=== PATIENT | female | born 1970 | race Caucasian/White ===

== ENCOUNTER 2017-04-18 06:00 | Day surgery (SDC) | payer OTHER, SELFPAY ==
[2017-04-18 09:58] VITALS: BP 123/82; PULSE 82; RESP 18; TEMP 36.4; O2SAT 98; BMI 26.0
== END 2017-04-18 23:59 | disposition home or self-care (01) ==
LOC: EN 08-29 11:14
PROVIDERS: Family Provider Family Medicine; PCP Family Medicine; Visit Provider Internal Medicine Gastroenterology
DX: R13.10 Dysphagia, unspecified (principal); R93.3 Abnormal findings on diagnostic imaging of other parts of digestive tract
CPT/HCPCS: 91299

== ENCOUNTER 2024-02-26 07:59 | Day surgery (SDC) | payer SELFPAY ==
[2024-02-26] VITALS (8 sets, daily range): BP systolic 125–152; BP diastolic 82–92; PULSE 70–94; RESP 16–18; TEMP 36.1–36.8; O2SAT 92–98; BMI 29.1
--- NOTE | 2024-02-26 08:36 | PRE.ANES_ITS ---
ASA Classification* ASA Classification ASA Classification: 2 Assessment & Plan Anesthesia* Anesthesia Assessment Anesthesia Assessment: Discussed sedation and/or anesthesia options, risks, benefits, and alternatives with patient/parents/legal guardian/POA. Questions invited. The patient/parents/legal guardian/POA seems to understand and agrees to proceed with anesthesia plan. Reviewed the physical assessment, medical history, allergy history and patient home medications list prior to surgery/procedure/anesthetic and documented any changes. Performed airway and anesthesia risk assessments. 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 When Was Last Pacemaker Check QUESTION #4 FULL TEXT: You/Your Family Experience fever (hyperthermia) with Anesthesia Last Oral Intake Last Oral intake: Last Oral Intake NPO since Meds taken in AM with sips of water? Meds patient instructed to take am of surgery PONV PONV - data warehouse developer: PONV - data warehouse developer Female Yes 02/19/24 15:25 HX of Motion Sickness No 02/19/24 15:25 HX of N/V After Surgery No 02/19/24 15:25 Non-Smoker Yes 02/19/24 15:25 Duration of Surgery greater Yes 02/19/24 15:25 than 60 minutes Number of Risk Factors 3 02/19/24 15:25 PONV Score Moderate Risk 02/19/24 15:25 Height & Weight Height & Weight: Anesthesia: Height & Weight Height 5 ft 1 in 01/13/24 09:04 Respiratory Assessment Respiratory Assessment - data warehouse developer: Respiratory Tract Infection Hx - data warehouse developer Hx Respiratory Tract Infection No 02/19/24 15:25 STOP Sleep Apnea STOP Sleep Apnea - data warehouse developer: STOP Sleep Apnea - data warehouse developer Hx Hypertension No 02/19/24 15:25 Hx Sleep Apnea No 02/19/24 15:25 CPAP BIPAP Do you snore loudly (louder No 02/19/24 15:25 than talking or can be heard Do you often feel tired/ No 02/19/24 15:25 fatigued/ sleepy during daytime? Has anyone observed you stop No 02/19/24 15:25 breathing during sleep? STOP Results Negative 02/19/24 15:25 QUESTION #5 FULL TEXT : Do you snore loudly (louder than talking or can be heard through closed doors)? 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 Specify any problems Hx of Preganancy in last 3 No 02/19/24 15:25 Months Nurse Filling Out Transfusion VCHRISTIN 02/19/24 15:25 & Questions: Date: 02/19/24 02/19/24 15:25 Time: 15:26 02/19/24 15:25 Patient unable to answer at this time (ie. confused, unrespo /Reproduction History /Reproductive History - data warehouse developer: /Reproductive Hx- data warehouse developer Hx Now Gestational Age (in weeks): EDC: Hx Hx Para Hx Section SAB Active Medications Active Medications: Current Medications Generic Name Dose Route Start Last Admin Trade Name Freq PRN Reason Stop Dose Admin Cefazolin Sodium 2 gm/ N/A 20 mls @ 400 mls/hr 02/26/24 10:40 IV 02/26/24 10:42 PREOP ONE Sodium Chloride 1,000 mls @ 15 mls/hr 02/26/24 08:35 IV 03/02/24 21:54 .Q48H [facility] Protocol PFSH Medical History Wears glasses Cancer History of steroid therapy Thyroid disease Arthritis DVT (deep venous thrombosis) Migraine headache History of hiatal hernia Non-smoker Asthma History of Holter monitoring History of echocardiogram History of irregular heartbeat Superior labrum bvglefwr-og-ydefduzoj (SLAP) tear of right shoulder Right rotator cuff tear Right shoulder pain Home Medications ?Medication ?Instructions ?Recorded ?Last Taken ?Type levothyroxine 88 mcg tablet 88 mcg PO DAILY 02/19/24 Unknown History magnesium 250 mg tablet 250 mg PO DAILY 02/19/24 Unknown History Allergy/AdvReac Type Severity Reaction Status Date / Time morphine Allergy Severe Nausea/Vom/ Verified 02/19/24 15:11 Diarrhea Family History Mother CVA (cerebral vascular accident) Surgical History Hx of appendectomy History of laparoscopic cholecystectomy Hx of colonoscopy History of gastric surgery Hx of tonsillectomy History of thyroid surgery Hx of section History of carpal tunnel surgery History of ankle surgery History of back surgery History of hernia surgery Social History household members: spouse and children Smoking Status: Never smoker alcohol intake: never Review of Systems (Anesthesia) ROS Narrative System reviewed and no additional complaints, except as documented.
[2024-02-26] MEDS: 0.9% Normal Saline (1000mL) 1,000 ML 15 ML IV (09:07)
--- NOTE | 2024-02-26 09:41 | HP.PCM_ITS ---
HPI - General HPI Narrative LUCIANO MARTIN, is a 53 F who presents for right shoulder arthroscopy, subacromial decompression, rotator cuff repair, possible biceps tenodesis. No changes to history and physical exam. Risks alternatives benefits discussed as well as postoperative instruction and narcotic counseling. Patient understands right shoulder marked no further questions or concerns okay to proceed. MR#: [id number] Acct: [id number] Name: LUCIANO MARTIN Rep #: [id number] : 1970 Provider: Dr. Nirav Hernandez MD Age/Sex: 53/F Location: [facility] Status: Signed Intake Vital Signs 01/12/2409:04 Height 5 ft 1 in Weight: 152 lb 4 oz BMI 28.8 Intake Visit Reasons: RIGHT SHOULDER/ANKLE Accompanied by: Son Is patient in pain?: Yes (Shoulder ) Pain scale (1-10): 4 Allergies No Known Allergies Allergy (Verified 01/13/24 09:05) Medications ?Medication ?Instructions ?Recorded ?Confirmed ?Type psyllium seed (sugar) oral powder 1 tbsp PO ONCE 01/13/24 01/13/24 History PFSH Medical History (Updated 01/13/24 @ 09:40 by Nirav Hernandez MD) Superior labrum lcfetuoc-ui-qbrewynxg (SLAP) tear of right shoulder Right rotator cuff tear Right shoulder pain Surgical History (Updated 01/13/24 @ 09:09 by Johanna Crews MA) History of gastric surgery Hx of tonsillectomy History of thyroid surgery Hx of section History of carpal tunnel surgery History of ankle surgery History of back surgery History of hernia surgery Family History (Updated 01/13/24 @ 09:10 by Johanna Crews MA) Mother CVA (cerebral vascular accident) Social History (Updated 01/13/24 @ 09:10 by Johanna Crews MA) household members: spouse and children Smoking Status: Never smoker alcohol intake: never HPI RIGHT SHOULDER/ANKLE Details: This documentation accurately reflects the service provided and the decisions made by me, Dr. Nirav Hernandez MD 01/13/24 0903. Part of today?s visit was documented by [ ], acting as scribe. LUCIANO MARTIN is a 53 year old F here today for R shoulder pain, staying the same, anterior and posterior shoulder pain. since September. FOOSH on the R upper extremity, had to avoid a vehicle on the [place]. was trying STIM therapy but making it worse. has to do up 16 loads of laundry a day likes to do sewing and quilting. RHD. medications - no and no injections. had cortisone in the past with poor reaction. had thyroid surgery a week ago. daughter getting in the spring. interested in surgery. Ortho Exam General General: Yes no acute distress Neurologic: Yes alert and Yes oriented x3 Psychologic: Yes reasonable and appropriate Right Shoulder Skin/Wound: Yes CDI, No ecchymosis, No erythema and No swelling Testing: Positive Hawkin's, Neer's, Speed's, TTP Biceps, AROM-Forward Elevation 0-180, AROM-External Rotation at side 0-60, empty can, Sherman and belly press normal; Negative TTP AC Joint, Drop Arm, Load and Shift, jerk, cross arm or scapular winging SHOULDER: normal motor and sens to ax nerve, and MRU and AIN/PIN strength fe 4/5, er 4+. Supplemental Info X-rays reviewed from disc of the right shoulder 12/23/2023 3 views no arthritis no acute MRI reviewed as well I independently reviewed the imaging. Concur with radiologist report. MRI right shoulder without contrast 12/05/2023 Conclusion 1. Superior anterior and posterior labral tears. 2 middle glenohumeral ligament tear 3 interstitial tear of the supraspinatus and subscapularis tendons Coding Level of Care Code Off vis,new,level 3 Diagnoses Right shoulder pain M25.511 Right rotator cuff tear M75.101 Superior labrum sbfvyyhp-of-dxexeyeki (SLAP) tear of right shoulder S43.431A Assessment and Plan Assessment and Plan (1) Right shoulder pain: Status: Acute Plan: 53-year-old female with right shoulder pain after an injury. The patient does have interstitial tearing of the supraspinatus tendon as well as tear at the superior labrum. No osteoarthritis. Patient counseled on the diagnosis prognosis different treatment options available including but not limited to rest ice anti-inflammatories active modifications doing nothing cortisone injections physical therapy and surgery. In my opinion the patient does not have instability despite the labrum tears no sensations of instability in the clinic or subjectively and typically in a patient over 50 with labrum tears this becomes more so stiff than anything. I think a lot of the pain is likely coming from bursitis tendinitis and the interstitial tearing. Patient is interested in surgery. In my hands this would be in the form of right shoulder arthroscopy, subacromial decompression, rotator cuff repair, possible biceps tenodesis. Explained the recovery associated with this 2 weeks in a sling 3 to 6 months of postoperative recovery including physical therapy the patient understands wishes to proceed signed the consent form for surgery as well as possible need for blood products. I also explained that there will be a delay to surgery given the national IV fluid shortage. The patient understands no further questions or concerns. Pros and cons risks and benefits were discussed with the patient including but not limited to infection, pain, stiffness, bleeding, damage to surrounding structures, neurovascular injury, recurrence or retear, failure or wear of hardware or fixation, instability, fracture, deep vein thrombosis and pulmonary embolism, anesthetic risks, , patient dissatisfaction, need for further surgery and other risks. Patient understood and wished to proceed with surgery, and signed the informed consent documentation. (2) Right rotator cuff tear: Status: Acute (3) Superior labrum gfvvhgmx-fj-ppntpvovs (SLAP) tear of right shoulder: Status: Acute [facility] Medical History Wears glasses Cancer History of steroid therapy Thyroid disease Arthritis DVT (deep venous thrombosis) Migraine headache History of hiatal hernia Non-smoker Asthma History of Holter monitoring History of echocardiogram History of irregular heartbeat Superior labrum doywagvf-gn-umhggupya (SLAP) tear of right shoulder Right rotator cuff tear Right shoulder pain Home Medications ?Medication ?Instructions ?Recorded ?Last Taken ?Type levothyroxine 88 mcg tablet 88 mcg PO DAILY 02/19/24 02/26/24 History magnesium 250 mg tablet 250 mg PO DAILY 02/19/24 02/23/24 History Allergy/AdvReac Type Severity Reaction Status Date / Time morphine Allergy Severe Nausea/Vom/ Verified 02/26/24 08:51 Diarrhea Family History Mother CVA (cerebral vascular accident) Surgical History Hx of appendectomy History of laparoscopic cholecystectomy Hx of colonoscopy History of gastric surgery Hx of tonsillectomy History of thyroid surgery Hx of section History of carpal tunnel surgery History of ankle surgery History of back surgery History of hernia surgery Social History household members: spouse and children Smoking Status: Never smoker alcohol intake: never Vital Signs Vital Signs Vital Signs: 02/26/24 08:52 02/26/24 08:52 Temperature 97.9 F Temperature Source Temporal Pulse Rate 79 Respiratory Rate 18 Respiratory Pattern Normal Blood Pressure 144/87 H Blood Pressure Mean 106 Blood Pressure Source Monitor Blood Pressure Position Semi-Fowlers Blood Pressure Location Left Arm Pulse Ox 98 Oxygen Delivery Method Room Air Weight Weight: 154 lb 5.177 oz Body Mass Index (BMI) 29.1
[2024-02-26] MEDS: Cefazolin 2 GM in Syringe IV (10:07)
[2024-02-26] MEDS: Epinephrine (1 mg/ml) 1 MG/ML VIAL (10:27)
--- NOTE | 2024-02-26 11:36 | PCM.OPRPT ---
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 Review Specialist: rj Dye Tasks completed by assistant offset press operator: Retracting Additional temporary administrative assistant?: No Type of Anesthesia: Block,Regional and General RN Documented Start/Stop Times: Operation Date: 02/26/24 10:40 Case Time Into Pre-Op 02/26/24 08:31 Anesthesia Start 02/26/24 10:07 Into Room 02/26/24 10:07 Out of Pre-Op 02/26/24 10:07 Procedure Start 02/26/24 10:27 Procedure End 02/26/24 11:30 Procedure Start Time: 10:27 Procedure Stop Time: 11:30 Select all DRAINS/GRAFTS/IMPLANTS that apply: Implanted device Implanted device details: arthre fibertak anchors Estimated Blood Loss: 50 Specimen collected: No Description of surgery: Patient brought to the operating room theater. Placed supine on the table. General anesthesia induced. 2 g IV Ancef administered prior to the start of the case. Patient transferred right side up lateral decubitus beanbag positioner axillary roll used. All bony prominences padded. SCDs on the legs. Upper extremity prepped and draped in the usual sterile fashion allowing over 3 minutes drying time prior to draping. Upper extremity in the traction set up 10 pounds of inline traction with the arm in 40 degrees of abduction. Preoperative timeout performed to confirm the site patient and the surgery. Began by inserting the arthroscope into the intra-articular portion of the shoulder through a standard posterior arthroscopy portal. Due to diagnostic arthroscopy. Cartilage on the glenoid and humeral head was normal. No obvious tearing of the undersurface of the rotator cuff tendons. Subscapularis - Normal. There is some minor biceps fraying and type II SLAP tearing instability of the biceps root. I made an inside out spinal needle localized portal through the rotator interval anteriorly. I performed an intra-articular biceps tenotomy for later biceps tenodesis. Arthroscope was then placed in the subacromial space. Made a lateral portal. I did a complete bursectomy for moderate amount of bursitis. I did a subacromial decompression for about 4 mm down to flat margins minor downsloping of the acromion. I probed the superior aspect of the rotator cuff supraspinatus there was some areas of appearing to be interstitial tearing and fraying. As such I decided to perform a trans tendon [id number] from anterior to posterior repair. I used Arthrex fiber tack knotless all suture anchors 1 anteriorly and 1 posteriorly to repair the tear at the mid aspect of the footprint. I used the repair sutures and shuttled these through the repair mechanism anterior to posterior to create 2 suture limbs. I cut the suture short. I took intraoperative arthroscopy pictures saved those onto the system. Next I turned my attention to the superior medial upper end of the humerus. Made a small 1 inch incision centered over the long head of the biceps tendon just distal to the pectoralis major tendon. Carried the dissection down through skin and subcutaneous tissue to meticulous hemostasis. Incised the fascia in line with skin incision. Identified the long head of the biceps tendon deliver this through the skin incision. I shorten the biceps appropriately. I used the Arthrex biceps locking loop repair suture and then passed the suture from superficial to deep. I then drilled a unicortical hole at the mid aspect of the humerus. I irrigated any bone dust. I passed the suture through the biceps tension tight button, and passed the button into the intramedullary aspect of the canal flipped the button and delivered the biceps down to the repair site suture cut short. Repair stable and very solid. Wounds thoroughly irrigated. Subcutaneous tissue closed with 2-0 Vicryl sutures and 3-0 Monocryl suture. Skin cleaned with wet and dry dressing followed application of Steri-Strips Adaptic 4 x 4 gauze ABD dressing cloth tape and an abduction pillow sling for the upper extremity. Patient woken up from the general anesthetic transferred off the operating table taken to postanesthetic care unit in stable condition. All sponge needle instrument counts were correct no complications. Plan for the patient discharged home according to day surgery criteria follow-up in the office in 2 days time. Pendulums gently 4x/day. CPT 48464, 41021, 14861 Surgical Findings: interstitial tearing SS, slap tear type 2. Complications Complications: No Admit VTE Documentation VTE Present on Admission: No VTE Mechan Device Prophylaxis: SCD's VTE Pharm Prophylaxis ordered?: No Reason prophylaxis not ordered: Treatment Not Indicated
--- NOTE | 2024-02-26 11:49 | EX.PCM.DISCH ---
Discharge Instructions Diet Discharge Diet: No restrictions Activity Ice area for (Minutes): 10 Lifting Restrictions: pendulums 4x/day, ok for hand wrist elbow rom, no lifting over 1 pound Dressing / Incision Call your doctor if your incision/area has: Continuous Slow Oozing, Sudden Increased Bleeding, Increased Pain/ Swelling, Increased Redness, Foul Smelling Discharge and Swelling at the incision site Call your doctor if you observe: Fever of 101 or Higher, Coldness, Increased Pain and Numbness or Tingling Remove Dressing in: leave in place till F/U Cleanse incision/area with: Do not get Incision Wet Follow Up Care Please Follow Up With: Nirav Hernandez MD When: 2 days Test Results: Test results from this visit will be discussed in further detail at your follow-up appointment, if applicable. Discharge Plan Admission Attending Provider: Nirav Hernandez Primary Care Provider: Negrito Dubose Instructions Print Language: Barbadian Discharge Orders/Prescriptions Prescriptions: New tramadol 50 mg tablet 50 mg PO Q4H PRN (Reason: pain) 5 Days Qty: 30 0RF No Action levothyroxine 88 mcg tablet 88 mcg PO DAILY Patient Comments: WILL BE INCREASING DOSAGE D/T LAB LEVEL. PT WILL ADVISE DAY OF OR magnesium 250 mg tablet 250 mg PO DAILY Referrals / Follow Up: Niarv Hernandez MD [Med Staff - Active Staff] - Negrito Dubose MD [Primary Care Provider] - Disposition Disposition (needs filled in before D/C Order can be placed): Home, Self Care
--- NOTE | 2024-02-26 14:13 | PCM.POST.ANE ---
Anesthesia: Postop Eval I Current Vital Signs Temperature: 97 F Pulse Rate: 93 Blood Pressure: 152/92 Respiratory Rate: 16 Pulse Ox: 98 Oxygen Delivery Method: Room Air Assessment Airway patent: Yes Spontaneous unlabored respirations: Yes Mental status: Awake and Calm nausea: No Vomiting: No Anesthesia Complication: No Fluid Hydration Crystalloid volume administer (ml): 1,000 Total IV fluid infused: 1,000 Progress Note Anesthesia document: Postop Eval 1 completed: Yes
--- NOTE | 2024-02-26 14:18 | POSTOPAN2_ITS ---
Anesthesia Postop Eval I Sum Postop Eval Completion status Anesthesia document: Postop Eval 1 completed: Yes Anesthesia Postop Eval I Summary Anesthesia Postop Eval I Summary: Anesthesia Postop Eval I: Assessment Summary Airway patent Yes 02/26/24 14:14 RN DOCUMENTATION [email or web address] Spontaneous unlabored Yes 02/26/24 14:14 RN DOCUMENTATION [email or web address].[email or web address] respirations Mental status Awake,Calm 02/26/24 14:14 RN DOCUMENTATION [email or web address].[email or web address] nausea No 02/26/24 14:14 RN DOCUMENTATION [email or web address].[email or web address] Vomiting No 02/26/24 14:14 RN DOCUMENTATION [email or web address].[email or web address] Anesthesia Postop Eval I: Fluid Summary Crystalloid volume administer 1,000 02/26/24 14:14 RN DOCUMENTATION [email or web address].[email or web address] (ml) Colloids volume administered ( ml) Blood Product volume administered (ml) Total IV fluid infused 1,000 02/26/24 14:14 RN DOCUMENTATION [email or web address].[email or web address] Anesthesia Postop Eval I: Summary Notes Anesthesia Complication No 02/26/24 14:14 RN DOCUMENTATION [email or web address].[email or web address] Anesthesia Complication Comment: Post-operative progress note Anesthesia: Postop Eval II Evaluation Mental status: Awake Pain Level: 0 nausea: No Vomiting: No
--- NOTE | 2024-02-26 14:18 | PCM.POSTANE2 ---
Anesthesia Postop Eval I Sum Postop Eval Completion status Anesthesia document: Postop Eval 1 completed: Yes Anesthesia Postop Eval I Summary Anesthesia Postop Eval I Summary: Anesthesia Postop Eval I: Assessment Summary Airway patent Yes 02/26/24 14:14 [email or web address] Spontaneous unlabored Yes 02/26/24 14:14 MACHINE [email or web address] respirations Mental status Awake,Calm 02/26/24 14:14 [email or web address] nausea No 02/26/24 14:14 MACHINE [email or web address] Vomiting No 02/26/24 14:14 [email or web address] Anesthesia Postop Eval I: Fluid Summary Crystalloid volume administer 1,000 02/26/24 14:14 [email or web address] (ml) Colloids volume administered ( ml) Blood Product volume administered (ml) Total IV fluid infused 1,000 02/26/24 14:14 [email or web address] Anesthesia Postop Eval I: Summary Notes Anesthesia Complication No 02/26/24 14:14 [email or web address] [email or web address] Anesthesia Complication Comment: Post-operative progress note Anesthesia: Postop Eval II Evaluation Mental status: Awake Pain Level: 0 nausea: No Vomiting: No
== END 2024-02-26 14:07 | disposition home or self-care (01) ==
LOC: SDC 08:08 → AC 08:11
PROVIDERS: PCP Family Medicine; Referring Provider Orthopaedic Surgery Sports Medicine; Visit Provider Orthopaedic Surgery Sports Medicine
PROC: (CPT 29805; principal; 2024-02-26 10:20)
DX: S43.431A Superior glenoid labrum lesion of right shoulder, initial encounter (principal); M75.101 Unspecified rotator cuff tear or rupture of right shoulder, not specified as traumatic; Z86.718 Personal history of other venous thrombosis and embolism; E07.9 Disorder of thyroid, unspecified; Z87.19 Personal history of other diseases of the digestive system; Z90.49 Acquired absence of other specified parts of digestive tract
CPT/HCPCS: 29826; 29827; 23430; 01630; 64450; C1713; J2405

== ENCOUNTER 2024-05-15 08:07 | Day surgery (SDC) | payer SELFPAY ==
[2024-05-15] VITALS (11 sets, daily range): BP systolic 121–154; BP diastolic 70–94; PULSE 78–97; RESP 16; TEMP 36.4–36.8; O2SAT 94–98; BMI 29.8
[2024-05-15] MEDS: 0.9% Normal Saline (1000mL) 1,000 ML 15 ML IV (08:55)
--- NOTE | 2024-05-15 09:34 | PRE.ANES_ITS ---
ASA Classification* ASA Classification ASA Classification: 2 Assessment & Plan Anesthesia* Anesthesia Assessment Anesthesia Assessment: Discussed sedation and/or anesthesia options, risks, benefits, and alternatives with patient/parents/legal guardian/POA. Questions invited. The patient/parents/legal guardian/POA seems to understand and agrees to proceed with anesthesia plan. Reviewed the physical assessment, medical history, allergy history and patient home medications list prior to surgery/procedure/anesthetic and documented any changes. Performed airway and anesthesia risk assessments. Anesthesia Type Anesthesia Type: General and Block (Patient is consented for pain block.) History Source History Obtained from:: Patient and Chart Anesthesia Focused Assessment* Temperature: 98.2 F Pulse Rate: 78 Blood Pressure: 148/94 Respiratory Rate: 16 Pulse Ox: 98 Oxygen Delivery Method: Room Air Airway Assessment Mouth opens: >3 cm Mallampati Score: I Teeth Condition: Intact Neck Range of motion (ROM): Full ROM Focused Labs Anesthesia Preop lab: CBC CHEMISTRY COAG Pre-Assessment Diagnosis/Proposed Procedure Planned Operative Procedure(s): REVISIONAL RIGHT LATERAL ANKLE STABILIZATION Anesthesia History 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 When Was Last Pacemaker Check QUESTION #4 FULL TEXT: You/Your Family Experience fever (hyperthermia) with Anesthesia Patient had episode of apnea after her gastric stretching procedure. Last Oral Intake Last Oral intake: Last Oral Intake NPO since 18:30 05/15/24 08:52 Meds taken in AM with sips of Yes 05/15/24 08:52 water? 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 Female Yes 05/01/24 11:04 HX of Motion Sickness Yes 05/01/24 11:04 HX of N/V After Surgery No 05/01/24 11:04 Non-Smoker Yes 05/01/24 11:04 Duration of Surgery greater Yes 05/01/24 11:04 than 60 minutes Number of Risk Factors 4 05/01/24 11:04 PONV Score Severe Risk 05/01/24 11:04 Height & Weight Height & Weight: Anesthesia: Height & Weight Height 5 ft 1 in 05/15/24 08:52 Weight: 71.6 kg 05/15/24 08:52 Body Mass Index (BMI) 29.8 05/15/24 08:52 Respiratory Assessment Respiratory Assessment - russian history professor: Respiratory Tract Infection Hx - russian history professor Hx Respiratory Tract Infection No 05/01/24 11:04 STOP Sleep Apnea STOP Sleep Apnea - russian history professor: STOP Sleep Apnea - russian history professor Hx Hypertension No 05/01/24 11:04 Hx Sleep Apnea No 05/01/24 11:04 CPAP BIPAP Do you snore loudly (louder No 05/01/24 11:04 than talking or can be heard Do you often feel tired/ No 05/01/24 11:04 fatigued/ sleepy during daytime? Has anyone observed you stop No 05/01/24 11:04 breathing during sleep? STOP Results Negative 05/01/24 11:04 QUESTION #5 FULL TEXT : Do you snore loudly (louder than talking or can be heard through closed doors)? 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 professor: Tobacco Use History - russian history professor Tobacco Use Smoking Status Never smoker 05/01/24 11:04 Hx Tobacco Use No 05/01/24 11:04 Years Smoking Packs Smoked per Day Smoking Cessation Date was within the last 15 years Hx Smoking Cessation Date Hx Smoking Cessation Counseling Hematologic Medial History Hematologic Hx - russian history professor: Hematologic Medical Hx - manager floral Hx of Blood Transfusion No 05/01/24 11:04 Hx of Transfusion in last 3 No 05/01/24 11:04 Months Date of Last Transfusion (if within last 3 months) Ever experience any problems No 05/01/24 11:04 with transfusion(s)? Specify any problems Hx of Preganancy in last 3 No 05/01/24 11:04 Months Nurse Filling Out Transfusion DSCHRIBER 05/01/24 11:04 & Questions: Date: 05/01/24 05/01/24 11:04 Time: 11:06 05/01/24 11:04 Patient unable to answer at this time (ie. confused, unrespo /Reproduction History /Reproductive History - russian history professor: /Reproductive Hx- russian history professor Hx Now No 05/01/24 11:04 Gestational Age (in weeks): EDC: Hx Hx Para Hx Section SAB No 05/01/24 11:04 Active Medications Active Medications: Current Medications Generic Name Dose Route Start Last Admin Trade Name Freq PRN Reason Stop Dose Admin Cefazolin Sodium 2 gm/ N/A 20 mls @ 400 mls/hr 05/15/24 10:30 IV 05/15/24 10:32 PREOP ONE Sodium Chloride 1,000 mls @ 15 mls/hr 05/15/24 08:45 05/15/24 08:55 IV 05/20/24 22:04 15 mls/hr .Q48H IVETH Administration Protocol PFSH Medical History History of stress test Wears glasses Cancer Thyroid disease Arthritis DVT (deep venous thrombosis) Migraine headache History of hiatal hernia Non-smoker Asthma History of irregular heartbeat Superior labrum hrmyttin-lj-fsgrtwpke (SLAP) tear of right shoulder Right rotator cuff tear Right shoulder pain Home Medications ?Medication ?Instructions ?Recorded ?Last Taken ?Type levothyroxine 88 mcg tablet 112 mcg PO DAILY 02/19/24 05/15/24 History magnesium 250 mg tablet 250 mg PO DAILY 02/19/2411/08 History BLOOD FLOW 7 1 tab PO DAILY 05/01/24 Unkn own History GREENLANDIC KISS 1 tab PO DAILY 05/01/24 Unkn own History Allergy/AdvReac Type Severity Reaction Status Date / Time morphine AdvReac Severe Nausea/Vom/ Verified 05/15/24 08:51 Diarrhea Family History Mother CVA (cerebral vascular accident) Surgical History Hx of shoulder surgery Hx of appendectomy History of laparoscopic cholecystectomy Hx of colonoscopy History of gastric surgery Hx of tonsillectomy History of thyroid surgery Hx of section History of carpal tunnel surgery History of ankle surgery History of back surgery History of hernia surgery Social History household members: spouse and children Smoking Status: Never smoker alcohol intake: never Review of Systems (Anesthesia) ROS Narrative System reviewed and no additional complaints, except as documented.
--- NOTE | 2024-05-15 10:30 | TISS_PTH ---
PATIENT: LUCIANO MARTIN LOC: [facility] – [place] U#:[id number] AGE/SX: 53/F ROOM: RE05/15/[address]: Dr. Jovon Mejia DPM : 1970 BED: DIS: 05/15/2024 SPEC #: [id number] RECD: 05/15/24 15:25 STATUS: SUNDAY JENNA #: [id number] DIMITRIOS: 05/15/24 10:[address]: Jovon Mejia DEPT: SURGICAL PATHOLOGY RECD BY: Melyssa De La Garza ENTERED: 05/18/24 08:43 SP TYPE: Tissue Bx MACK DR: Dr. Negrito Dubose MD Tissues: Ankle, NOS Procedures: Surgery Specimen Level IV HEADER OPERATION: Revisional right lateral ankle stabilization PRE-OP DIAGNOSIS: Right foot pain TISSUE SUBMITTED: Suture anchor right ankle MICROSCOPIC DIAGNOSIS Right ankle, suture anchor, debridement: * Fibroadipose tissue with suture material and foreign body inflammation. MICROSCOPIC DESCRIPTION Slides are reviewed. GROSS DESCRIPTION Received in fixative is one container labeled with the patient's name and designated Suture anchor right ankle. The specimen consists of two irregular shaped fragments of yellow-ramos fibrous / fibroadipose tissue. The fragments aggregate to 1.5 x 1.2 x 0.6cm. The larger of the two fragments is inked black and is bisected. Sectioning is unremarkable. The entire specimen is submitted in one cassette. Kelli 05/18/2024 TC: CPT:00198
[2024-05-15] MEDS: Cefazolin 2 GM in Syringe IV (11:52)
--- NOTE | 2024-05-15 11:55 | RAD_ITS ---
PROCEDURE: ANKLE 2 VIEWS REASON FOR EXAM: Intraoperative imaging. TECHNIQUE: Several views were obtained intraoperatively for reduction of the ankle. COMPARISON: None FINDINGS: Intraoperative fluoroscopic services. RAD/Ankle 2 Views IMPRESSION: Intraoperative fluoroscopic services. Reading Location: [id number]
--- NOTE | 2024-05-15 13:06 | PCM.OPRPT ---
Problems Associated Problem List Diagnoses (1) Instability of right ankle joint: Operative Report (Standard) Operative Information Date of Procedure: 05/15/24 Pre-Operative Diagnosis: 1) Chronic Right Lateral Ankle Stabilization Post-Operative Diagnosis: Same Surgery/Procedure Performed: Revisional right lateral ankle stabilization with brostrum belcher and overlying internal bracing visual merchandising director: Yes Procedure Manager: pj lezama Tasks completed by medical assistant instructor: Opening, Closing, Opening & closing, Removing tissue, Implanting device, Hemostasis: Tie, Hemostasis: Electrocautery, Trocar and Retracting Additional leasing assistant?: No Type of Anesthesia: General RN Documented Start/Stop Times: Operation Date: 05/15/24 10:30 Case Time Into Pre-Op 05/15/24 08:40 Anesthesia Start 05/15/24 11:37 Into Room 05/15/24 11:37 Procedure Start 05/15/24 11:58 Procedure Start Time: 11:50 Procedure Stop Time: 13:15 Select all DRAINS/GRAFTS/IMPLANTS that apply: Implanted device Implanted device details: 3x3.5mm anchors, 2x2.9mm anchors andra Special Medications: popliteal block performed pre op per anesthesia Estimated Blood Loss: minimal Specimen collected: Yes Description of specimen(s) removed: previous ankle repair anchor removal Description of surgery: Patient brought back to the operating room and placed comfortably with all osseous prominences offloaded. Well padded well thigh tourniquet applied to right thigh. Right lower extremity scrubbed, prepped and draped using adeptic technique. Right lower extremity elevated exsanguinated tourniquet inflated to 300 mmHg. Using fluoroscopic imaging the distal lateral malleolus was marked out. A curvilinear incision along the distal course of the anterior portion of the fibula was drawn curving into the sinus tarsi. This incision was made full-thickness through epidermis dermis into subcutaneous tissue with a #15 blade. Any bleeders identified cauterized. Blunt dissection was taken down the level of the fascia. There is noted to be diffuse scar tissue the lateral ankle with previous anchors and suture from previous surgical correction which appeared to be inferior to actual anatomic position of the ATFL ligament. This previous repair was noted to be unstable with stressing as documented on fluoroscopic imaging. Next, a full-thickness flap was created along the anterior fibula extending across the ankle joint to the lateral talar body and neck. This was made with hemostats extending from the ankle joint from superior to inferior. This flap was created with a 15 blade and slightly dissected off the anterior lip of the fibula to allow for space for Brostr?m repair. Additionally ATFL was noted to be in significant and not stable during this process. At this point a 3.5 mm suture fix anchor was applied with 2 strands of fiber tape, #2 anchored into it along the anterior lateral talar body/shoulder. These were passed and held off to the side out of the way of the the incisional site. 8-9 suture fix anchor was applied distally along the anterior aspect of the fibula and this was passed through with a #2 fiber tape from inferior to superior through the fibular full-thickness periosteal ATFL flap that was created previously into the distal end of the ATFL ligament from inferior to superior and then superior to inferior back through creating a process from repair with the inferior extensor retinaculum tacked down with a second to 9 anchor that was placed 1.5 cm superior to the initial anchor this was placed and tightened with the ankle held in a dorsiflexed and everted position maximally. At this time the 2 ends of the fiber tape were split the ankle was held in a neutral rectus position and these were stable since lies down with from the lateral talar body anchor into the fibula using two 3.5 mm suture fix anchors as tissue augmentation supplementation of that lateral ankle repair via internal brace. At this time all loose suture ends were cut this was a knotless repair. Fluoroscopic imaging was used to confirm adequate position laterally on AP imaging with lined up ankle mortise. This was noted. Upon varus and anterior drawer stressing there was no residual instability as documented fluoroscopic imaging. Tourniquet was let down, total tourniquet time was noted to be an hour and 12 minutes. Site was flushed with copious amounts normal sterile saline. Deep closure performed with simple interrupted 3-0 Vicryl. Subcutaneous closure performed with simple interrupted 3-0 Vicryl. Skin closure performed with 3-0 nylon horizontal mattress. Incisional site dressed with Betadine Adaptic 4 x 4's Kerlix and a well-padded AO splint with the foot and ankle held in a dorsiflexed everted position. Patient Toller procedure and anesthesia well apparent satisfactory condition. Patient transported PACU vital signs stable and vascular status intact all digits for further monitoring prior to discharge. No complications Findings restored stability to the lateral ankle ligaments as confirmed with fluoroscopic imaging where there is no talar tilting or positive anterior drawer sign upon stressing. Previous repair is noted to be unstable with initial fluoroscopic stressing that is documented. [place] was patent taken and passed to the back table to be sent for pathology Surgical Findings: Patient underwent lateral ankle repair revision manage she had continued instability with hi frequent ankle sprains and despite previous repair. This had limited patient's trust in her ankle and ability to perform activities of daily living. MRI was taken and demonstrated non specific surgical changes. Patient was brought in today for stressing under fluoroscopic imaging with definitive stabilization and this was performed with success. Complications Complications: No
--- NOTE | 2024-05-15 16:55 | PCM.POST.ANE ---
Anesthesia: Postop Eval I Current Vital Signs Temperature: 97.7 F Pulse Rate: 97 Blood Pressure: 154/83 Respiratory Rate: 16 Pulse Ox: 95 Assessment Airway patent: Yes Spontaneous unlabored respirations: Yes nausea: No Vomiting: No Anesthesia Complication: No Fluid Hydration Crystalloid volume administer (ml): 500 Total IV fluid infused: 500 Progress Note Anesthesia document: Postop Eval 1 completed: Yes
--- NOTE | 2024-05-15 16:56 | POSTOPAN2_ITS ---
Anesthesia Postop Eval I Sum Postop Eval Completion status Anesthesia document: Postop Eval 1 completed: Yes Anesthesia Postop Eval I Summary Anesthesia Postop Eval I Summary: Anesthesia Postop Eval I: Assessment Summary Airway patent Yes 05/15/24 16:56 CORE [email or web address] Spontaneous unlabored Yes 05/15/24 16:56 CORE MANAGER.[email or web address] respirations Mental status nausea No 05/15/24 16:56 CORE MANAGER.[email or web address] Vomiting No 05/15/24 16:56 CORE MANAGER.[email or web address] Anesthesia Postop Eval I: Fluid Summary Crystalloid volume administer 500 05/15/24 16:56 CORE [email or web address] (ml) Colloids volume administered ( ml) Blood Product volume administered (ml) Total IV fluid infused 500 05/15/24 16:56 CORE [email or web address] Anesthesia Postop Eval I: Summary Notes Anesthesia Complication No 05/15/24 16:56 CORE MANAGER.TNES Anesthesia Complication Comment: Post-operative progress note Anesthesia: Postop Eval II Evaluation Mental status: Awake and Calm Pain Level: 1 nausea: No Vomiting: No Complications Anesthesia Complication: No
--- NOTE | 2024-05-15 16:56 | PCM.POSTANE2 ---
Anesthesia Postop Eval I Sum Postop Eval Completion status Anesthesia document: Postop Eval 1 completed: Yes Anesthesia Postop Eval I Summary Anesthesia Postop Eval I Summary: Anesthesia Postop Eval I: Assessment Summary Airway patent Yes 05/15/24 16:56 SENIOR RESEARCH PROJECT [email or web address] Spontaneous unlabored Yes 05/15/24 16:56 SENIOR RESEARCH PROJECT MANAGER.[email or web address] respirations Mental status nausea No 05/15/24 16:56 SENIOR RESEARCH PROJECT MANAGER.[email or web address] Vomiting No 05/15/24 16:56 SENIOR RESEARCH PROJECT MANAGER.TNES Anesthesia Postop Eval I: Fluid Summary Crystalloid volume administer 500 05/15/24 16:56 SENIOR RESEARCH PROJECT MANAGER.TNES (ml) Colloids volume administered ( ml) Blood Product volume administered (ml) Total IV fluid infused 500 05/15/24 16:56 SENIOR RESEARCH PROJECT MANAGER.TNES Anesthesia Postop Eval I: Summary Notes Anesthesia Complication No 05/15/24 16:56 SENIOR RESEARCH PROJECT MANAGER.TNES Anesthesia Complication Comment: Post-operative progress note Anesthesia: Postop Eval II Evaluation Mental status: Awake and Calm Pain Level: 1 nausea: No Vomiting: No Complications Anesthesia Complication: No
[2024-05-18 07:09] VITALS: BP 154/83; PULSE 97; RESP 16; TEMP 36.5; O2SAT 95
== END 2024-05-15 15:12 | disposition home or self-care (01) ==
LOC: SDC 08:09 → AC 08:14
PROVIDERS: PCP Family Medicine; Referring Provider Podiatrist; Visit Provider Podiatrist
PROC: (CPT 27698; principal; 2024-05-15 10:15)
DX: M25.371 Other instability, right ankle (principal); X58.XXXA Exposure to other specified factors, initial encounter; E89.0 Postprocedural hypothyroidism; Z79.890 Hormone replacement therapy
CPT/HCPCS: 27698; 64450; 73600; 76000; 88305; C1713; J2405

== ENCOUNTER → 2024-06-17 | Outpatient (CLI) | payer SELFPAY | END | disposition home or self-care (01) | LOC: LABSPEC 17:14 | PROVIDERS: PCP Family Medicine; Visit Provider Family Medicine | DX: L97.512 Non-pressure chronic ulcer of other part of right foot with fat layer exposed (principal) | CPT/HCPCS: 87070; 87077; 87186; 87205 ==